=== PATIENT | male | born 2000 | race Caucasian/White ===

== ENCOUNTER 2022-06-19 15:23 | Emergency (ER) | payer OTHER, BC ==
[2022-06-19 15:29] VITALS: BP 131/84; PULSE 102; RESP 18; TEMP 98; BMI 23.5
[2022-06-19] MEDS ORDERED: FAMOTIDINE 20 MG TABLET PO ONE (16:35)
[2022-06-19] MEDS ORDERED: ACETAMINOPHEN 325 MG TABLET (FP) PO ONE (16:35)
[2022-06-19] MEDS ORDERED: SUCRALFATE 1 GM/10 ML UNIT DOSE CUPS PO ONE (16:36)
[2022-06-19] MEDS ORDERED: MAG HYDROX/AL HYDROX/SIMETH 30 ML UNIT-DOSE CUP PO ONE (16:36)
[2022-06-19] MEDS ORDERED: FAMOTIDINE 20 MG/50 ML IVPB 20 MG/50 ML MG IVPB ONE ×2 (16:44→17:15)
[2022-06-19] MEDS ORDERED: ACETAMINOPHEN 1000 MG/100 ML BAG IVPB ONE (16:44)
[2022-06-19] MEDS ORDERED: MAG HYDROX/AL HYDROX/SIMETH 30 ML UNIT-DOSE CUP ONE (17:12)
[2022-06-19] MEDS ORDERED: ACETAMINOPHEN INJECTION 100 ML IVPB ONE (17:14)
[2022-06-19] MEDS ORDERED: SUCRALFATE 1 GM TABLET (FP) ONE (17:14)
[2022-06-19] MEDS ORDERED: SUCRALFATE 1 GM TABLET (FP) PO ONE (17:14)
[2022-06-19 17:40] LABS: BASO % 0.5 % (0-2.0); EOS % 0.6 % (0-4.5); HEMATOCRIT 45.5 % (35.4-49); HEMOGLOBIN 15.5 GM/dL (11.7-16.9); LYMPH % 19.2 % (8-40); MCH 30.8 pg (25.7-33.7); MCHC 34.2 g/dl (32.0-35.9); MEAN CELL VOLUME 90.3 fl (80-96); MONO % 7.5 % (3.8-10.2); NEUT % 72.2 % (42.8-82.8); PLATELET COUNT 250 10^3/uL (134-434); RBC 5.04 M/mm3 (4.00-5.60); RDW 12.9 % (11.9-15.9)
[2022-06-19 18:06] LABS: CALCIUM 9.7 mg/dL (8.5-10.1)
[2022-06-19 18:07] LABS: ALBUMIN 4.6 g/dl (3.4-5.0); BLOOD UREA NITROGEN 9.8 mg/dL (7-18)
[2022-06-19 18:10] LABS: CREATININE 0.8 mg/dL (0.55-1.3)
[2022-06-19 18:11] LABS: BILIRUBIN,TOTAL 0.6 mg/dL (0.2-1); TOT PROT 8.1 g/dl (6.4-8.2)
== END 2022-06-19 18:45 | disposition home or self-care (01) ==
LOC: JER 15:23
PROC: 3E0333Z Introduction of Anti-inflammatory into Peripheral Vein, Percutaneous Approach (ICD-10-PCS; principal; 2022-06-19)
PROC: 3E033GC Introduction of Other Therapeutic Substance into Peripheral Vein, Percutaneous Approach (ICD-10-PCS; 2022-06-19)
DX: R10.13 Epigastric pain (principal)
CPT/HCPCS: 36415; 71046-TC-FY; 80053; 83690; 84484; 85025; 93005; 93010; 99285-25